=== PATIENT | male | born 1980 | race Caucasian/White ===

== ENCOUNTER 2023-06-27 20:33 | Inpatient (IN) ==
--- NOTE | 2023-06-27 21:06 | Emergency Department Note ---
Impression & Plan Cholelithiasis, Biliary colic, Hypokalemia ED Provider Note NAME: CANDI ALMONTE AGE: 43 SEX: M : 1980 ARRIVES VIA: Ambulance INFORMANT: Patient ED PROVIDER(S): Jon Donahue DO CHIEF COMPLAINT: abdominal pain HPI: Patient is a 43-year-old male who presents to the ER for epigastric abdominal pain which started around 745. This was associated with nausea but no vomiting. He notes it was severe and comes and goes in waves. He notes if he takes a deep breath his belly hurts significantly more as well as twisting, turning, and bending. No previous abdominal surgeries. No dysuria, urgency, or frequency. No other exacerbating or remitting factors. ADDITIONAL HISTORY OBTAINED: Additional history obtained from who is present at bedside who notes that the symptoms started around 7:45 PM tonight just after dinner Chronic Medical/Social Conditions Affecting Care: Per HPI PAST MEDICAL HISTORY:See Below PAST SURGICAL HISTORY:See Below FAMILY HISTORY:See Below SOCIAL HISTORY:See Below HOME MEDICATIONS:See Below ALLERGIES:See Below VITALS:See Below PHYSICAL EXAMINATION: GENERAL: Sitting up in bed, alert, well appearing, well nourished, no distress, non-toxic EYE EXAM: normal conjunctiva. PERRL and EOM's grossly intact. OROPHARYNX: no exudate, no erythema, lips, buccal mucosa, and tongue normal and mucous membranes are moist NECK: supple, no nuchal rigidity, no adenopathy, non-tender LUNGS: Clear to auscultation. Normal chest wall mechanics HEART: no murmurs, S1 normal and S2 normal ABDOMEN: abdomen soft, tender palpation in the epigastric region, normo-active bowel sounds, no masses, no rebound or guarding. UPPER EXTREMITIES: upper extremities are grossly normal. LOWER EXTREMITIES: No pitting edema. NEURO EXAM: Normal sensorium, cranial nerves II-XII grossly intact, normal speech, no gross weakness of arms, no gross weakness of legs. MEDICAL DECISION MAKING: Patient is a 43-year-old male who presents ER for epigastric abdominal pain. IV was established blood work was obtained. Labs show no significant leukocytosis or anemia. BMP with mild hypokalemia 3.3. LFTs bilirubin was unremarkable. Lipase was normal. CT abdomen pelvis shows cholelithiasis. He was given IV fluids and IV narcotics. He was significantly tender in the right upper quadrant. Do favor this consistent with biliary colic/possible cholecystitis. Discussed case with Mehrdad from general surgery. He evaluated him at bedside. He discussed with his attending and patient was admitted. Ultrasound was ordered and pending upon admission. Consults/Care Managements Discussions: Per [facility] Triage Nursing notes reviewed. Limited review of prior medical records performed Vital Signs: reviewed and remarkable for no significant abnormalities Differential diagnosis: Differential diagnoses includes but is not limited to gastritis, peptic ulcer disease, GERD, gallbladder disease, pancreatitis, small bowel obstruction, appendicitis, diverticulitis, hernia, urinary tract infection, torsion, perforation, trauma, infectious. ER treatment provided: See below Diagnostics interpreted by me include EKG and cardiac monitoring as listed below: -Cardiac Monitoring: An order was placed for continuous cardiac monitoring. The monitor shows a rate of 70 with sinus rhythm. -ECG: Sinus rhythm rate 72 Normal axis No PVCs QTc 405 -Laboratory studies:Interpreted by me as stated above in MDM and shown below. Imaging studies: Xrays: As interpreted by me:none CTs show: CT abdomen pelvis per my preliminary interpretation shows stones in the gallbladder CT abdomen pelvis per radiology as described above Procedures:none Critical Care: None Past Med/Surg History Social History Smoking Status: Unknown if ever smoked Preferred Language: Bruneian Feels Safe at Home: Yes Allergies Allergies Allergy/AdvReac Type Severity Reaction Status Date / Time No Known Allergies Allergy Verified 06/27/23 22:16 Home Meds Home Medications Medication Instructions Recorded Confirmed No Known Home Medications 06/27/23 06/27/23 Results & Data (ED) Vital Signs Vital Signs - 24 hr 06/27/23 20:30 06/27/23 20:51 06/27/23 21:00 Temperature 36.9 C Temperature Source Oral Pulse Rate 78 80 73 Pulse Rate [Apical] Pulse Rate from SpO2 Sensor 73 Pulse Rhythm Regular Pulse Strength Normal Respiratory Rate 22 20 Respiratory Effort / Characteristics Non-Labored Spontaneous Respiratory Depth Normal Respiratory Pattern Regular Blood Pressure 144/112 H 138/106 H Blood Pressure [Right Arm] Blood Pressure Mean 122 116 Blood Pressure Mean [Right Arm] Blood Pressure Position Lying Blood Pressure Position [Right Arm] Pulse Oximetry 100 95 Oxygen Delivery Method Room Air Room Air Sepsis Recent Fever Within 48 Hours No Sepsis New/Unexplained Change in Mental Status N/A Sepsis Action Taken by Nursing No Action Required 06/27/23 21:09 06/27/23 22:00 06/27/23 22:30 Temperature Temperature Source Pulse Rate 78 75 73 Pulse Rate [Apical] Pulse Rate from SpO2 Sensor 75 74 Pulse Rhythm Pulse Strength Respiratory Rate 22 17 14 Respiratory Effort / Characteristics Respiratory Depth Respiratory Pattern Blood Pressure 123/87 127/86 Blood Pressure [Right Arm] Blood Pressure Mean 99 99 Blood Pressure Mean [Right Arm] Blood Pressure Position Blood Pressure Position [Right Arm] Pulse Oximetry 98 95 94 Oxygen Delivery Method Room Air Room Air Room Air Sepsis Recent Fever Within 48 Hours Sepsis New/Unexplained Change in Mental Status Sepsis Action Taken by Nursing 06/27/23 23:24 Temperature Temperature Source Pulse Rate Pulse Rate [Apical] 62 Pulse Rate from SpO2 Sensor Pulse Rhythm Pulse Strength Respiratory Rate 18 Respiratory Effort / Characteristics Non-Labored Spontaneous Respiratory Depth Normal Respiratory Pattern Regular Blood Pressure Blood Pressure [Right Arm] 141/91 H Blood Pressure Mean Blood Pressure Mean [Right Arm] 107 Blood Pressure Position Blood Pressure Position [Right Arm] Semi-fowlers Pulse Oximetry 95 Oxygen Delivery Method Room Air Sepsis Recent Fever Within 48 Hours Sepsis New/Unexplained Change in Mental Status Sepsis Action Taken by Nursing Laboratory Data 06/27/23 Unknown 06/27/23 Unknown Lab Results 06/27/23 Range/Units Unknown WBC 6.70 (4.8-10.8) K/ul RBC 5.01 (4.70-6.10) M/uL Hgb 14.6 (14.0-18.0) g/dl Hct 43.1 (42.0-52.0) % MCV 86.0 (80.0-100.0) fL MCH 29.1 (25.0-34.0) pg MCHC 33.9 (32.0-36.0) g/dL RDW Std Deviation 37.7 (36.4-46.3) fL RDW Coeff of Elliot 11.9 (11.5-14.5) % Plt Count 203 (130-400) K/uL MPV 11.8 (9.4-12.4) fL Immature Gran % (Auto) 0.1 % Neut % (Auto) 34.4 % Lymph % (Auto) 56.0 % Scurry % (Auto) 7.2 % Eos % (Auto) 2.2 % Baso % (Auto) 0.1 % Neut # (Auto) 2.30 (1.40-6.50) K/uL Lymph # (Auto) 3.75 H (1.20-3.40) K/uL Scurry # (Auto) 0.48 (0.11-0.59) K/uL Eos # (Auto) 0.15 (0.00-0.50) K/uL Baso # (Auto) 0.01 (0.00-0.20) K/uL Immature Gran # (Auto) 0.01 (0.01-0.20) K/uL Sodium 140 (136-145) mmol/L Potassium 3.3 L (3.5-5.1) mmol/L Chloride 104 (98-107) mmol/L Carbon Dioxide 29 (21-32) mmol/L Anion Gap 7 (3-11) BUN 16 (6-23) mg/dl Creatinine 0.84 (0.6-1.4) mg/dl Est Cr Clr Drug Dosing Not Reportable Est GFR ( Amer) 125.2 ml/min Est GFR (Non-Af Amer) 108.0 ml/min BUN/Creatinine Ratio 19.0 (10-20) Glucose 90 (70-99(Fasting)) mg/dl Calcium 9.1 (8.6-10.3) mg/dl Total Bilirubin 0.6 (0.2-1.0) mg/dl AST 31 (13-39) U/L ALT 22 (7-52) U/L Alkaline Phosphatase 75 (34-104) U/L Total Protein 7.8 (6.0-8.3) gm/dl Albumin 4.6 (3.4-5.0) gm/dl Globulin 3.2 (2.5-4.0) gm/dl Albumin/Globulin Ratio 1.4 (0.9-2) Lipase 25 (11-82) U/L Administered Medications Discontinued Medications Ioversol (Optiray 320 100ml) 92 ml IV ONCE ONE Stop: 06/27/23 21:35 Last Admin: 06/27/23 21:34 Dose: 92 ml Documented By: NEHA Morphine Sulfate (Morphine Sulfate 10 Mg/Ml Carp/Vial) 6 mg IV NOW STA Stop: 06/27/23 21:04 Last Admin: 06/27/23 21:14 Dose: 6 mg Documented By: CHERYL Ondansetron HCl (Ondansetron Inj 2 Mg/Ml 2 Ml Vial) 4 mg IV NOW STA Stop: 06/27/23 21:04 Last Admin: 06/27/23 21:14 Dose: 4 mg Documented By: CHERYL Imaging Data Radiologist's Impression: Abdomen/Pelvis CT 06/27/23 20:54 Exam(s): CT ABDOMEN + PELVIS With Contrast IV Amt: 92 ml optiray 320 EXAM: CT Abdomen and Pelvis With Intravenous Contrast CLINICAL HISTORY: Reason for exam: epigastric abd. TECHNIQUE: Axial computed tomography images of the abdomen and pelvis with intravenous contrast. CTDI is 20.71 mGy and DLP is 1101.08 mGy-cm. Automated exposure control was utilized for the study. A dose lowering technique was utilized adhering to the principles of ALARA. CONTRAST: Patient received 92 ml optiray 320 of IV contrast COMPARISON: No relevant prior studies available. FINDINGS: Lung bases: Unremarkable. No mass. No consolidation. ABDOMEN: Liver: Unremarkable. No mass. Gallbladder and bile ducts: Cholelithiasis. No ductal dilation. Pancreas: Unremarkable. No mass. No ductal dilation. Spleen: Unremarkable. No splenomegaly. Adrenals: Unremarkable. No mass. Kidneys and ureters: Unremarkable. No hydronephrosis or delayed nephrogram. Stomach and bowel: Diverticulosis, without acute diverticulitis. No small bowel obstruction. No free intraperitoneal air. PELVIS: Appendix: Normal appendix. Bladder: Decompressed urinary bladder. Reproductive: Vasectomy clips. ABDOMEN and PELVIS: Intraperitoneal space: Unremarkable. No free air. No significant fluid collection. Bones/joints: No acute fracture. No dislocation. Soft tissues: Unremarkable. Vasculature: Unremarkable. No abdominal aortic aneurysm. Lymph nodes: Unremarkable. No enlarged lymph nodes. IMPRESSION: 1. No hydronephrosis or delayed nephrogram. 2. Cholelithiasis. 3. Diverticulosis, without acute diverticulitis. No small bowel obstruction. No free intraperitoneal air. Electronically signed by: Ward Knott MD 06/27/23 22:23 PM Discharge Plan Visit Data Chief Complaint: Abdominal Pain Stated Complaint: UPPER ABD PAIN, RESTLESS, DIAPHORETIC ED Provider: Jon Donahue Discharge Problem: Cholelithiasis, Biliary colic, Hypokalemia Forms Stand Alone Forms: [facility] Prescriptions Prescriptions: No Action No Known Home Medications Referrals Referrals: PCP,NO [Physician] - Discharge Problem: Cholelithiasis Qualifiers: Cholelithiasis location: gallbladder Cholecystitis presence: with cholecystitis Cholecystitis acuity: unspecified acuity Biliary obstruction: without biliary obstruction Qualified Code(s): K80.10 - Calculus of gallbladder with chronic cholecystitis without obstruction
[2023-06-27] MEDS: ONDANSETRON INJ 2 MG/ML 2 ML VIAL IV STA (21:14)
[2023-06-27] MEDS: MoRPHine SULFATE 10 MG/ML CARP/VIAL IV STA (21:14)
[2023-06-27] MEDS: OPTIRAY 320 100ml IV ONE (21:34)
[2023-06-27 22:08] LABS: Alanine Aminotransferase 22 U/L (7-52); Albumin Globulin Ratio 1.4 (0.9-2); Albumin Level 4.6 gm/dl (3.4-5.0); Alkaline Phosphatase 75 U/L (34-104); Anion Gap 7 (3-11); Aspartate Aminotransferase 31 U/L (13-39); Bilirubin,Total 0.6 mg/dl (0.2-1.0); Blood Urea Nitrogen 16 mg/dl (6-23); Calcium 9.1 mg/dl (8.6-10.3); Carbon Dioxide 29 mmol/L (21-32); Chloride 104 mmol/L (98-107); Est GFR (African American) 125.2 ml/min; Globulin 3.2 gm/dl (2.5-4.0); Glucose 90 mg/dl (70-99(Fasting)); Lipase 25 U/L (11-82); Potassium 3.3 mmol/L (3.5-5.1); Sodium 140 mmol/L (136-145); Total Protein 7.8 gm/dl (6.0-8.3)
[2023-06-27 22:17] LABS: Hematocrit (blood only) 43.1 % (42.0-52.0); Hemoglobin 14.6 g/dl (14.0-18.0); Mean Corpuscular Hemoglobin 29.1 pg (25.0-34.0); Mean Corpuscular Hgb Conc 33.9 g/dL (32.0-36.0); Mean Platelet Volume 11.8 fL (9.4-12.4); Platelet Count 203 K/uL (130-400); RDW Coefficient of Variation 11.9 % (11.5-14.5); RDW Standard Deviation 37.7 fL (36.4-46.3); Red Blood Count 5.01 M/uL (4.70-6.10)
--- NOTE | 2023-06-27 22:24 | CT Scan Report ---
Exam(s): CT ABDOMEN + PELVIS With Contrast IV Amt: 92 ml optiray 320 EXAM: CT Abdomen and Pelvis With Intravenous Contrast CLINICAL HISTORY: Reason for exam: epigastric abd. TECHNIQUE: Axial computed tomography images of the abdomen and pelvis with intravenous contrast. CTDI is 20.71 mGy and DLP is 1101.08 mGy-cm. Automated exposure control was utilized for the study. A dose lowering technique was utilized adhering to the principles of ALARA. CONTRAST: Patient received 92 ml optiray 320 of IV contrast COMPARISON: No relevant prior studies available. FINDINGS: Lung bases: Unremarkable. No mass. No consolidation. ABDOMEN: Liver: Unremarkable. No mass. Gallbladder and bile ducts: Cholelithiasis. No ductal dilation. Pancreas: Unremarkable. No mass. No ductal dilation. Spleen: Unremarkable. No splenomegaly. Adrenals: Unremarkable. No mass. Kidneys and ureters: Unremarkable. No hydronephrosis or delayed nephrogram. Stomach and bowel: Diverticulosis, without acute diverticulitis. No small bowel obstruction. No free intraperitoneal air. PELVIS: Appendix: Normal appendix. Bladder: Decompressed urinary bladder. Reproductive: Vasectomy clips. ABDOMEN and PELVIS: Intraperitoneal space: Unremarkable. No free air. No significant fluid collection. Bones/joints: No acute fracture. No dislocation. Soft tissues: Unremarkable. Vasculature: Unremarkable. No abdominal aortic aneurysm. Lymph nodes: Unremarkable. No enlarged lymph nodes. IMPRESSION: 1. No hydronephrosis or delayed nephrogram. 2. Cholelithiasis. 3. Diverticulosis, without acute diverticulitis. No small bowel obstruction. No free intraperitoneal air. Electronically signed by: Ward Knott MD 06/27/23 22:23 PM
[2023-06-27 22:54] LABS: Basophils # (auto) 0.01 K/uL (0.00-0.20); Basophils % (auto) 0.1 %; Eosinophils # (auto) 0.15 K/uL (0.00-0.50); Eosinophils % (auto) 2.2 %; Immature Granulocytes # (auto) 0.01 K/uL (0.01-0.20); Immature Granulocytes % (auto) 0.1 %; Lymphocytes # (auto) 3.75 K/uL (1.20-3.40); Monocytes # (auto) 0.48 K/uL (0.11-0.59); Monocytes % (auto) 7.2 %; Neutrophils % (auto) 34.4 %
[2023-06-27] MEDS ORDERED: ACETAMINOPHEN 1,000 MG/100 ML VIAL IV PRN (23:03)
[2023-06-27] MEDS ORDERED: MoRPHine SULFATE 4 MG/ML 1 ML CARP\\VIAL IV PRN (23:03)
[2023-06-27] MEDS ORDERED: ONDANSETRON INJ 2 MG/ML 2 ML VIAL IV PRN (23:03)
--- NOTE | 2023-06-27 23:03 | History & Physical Report ---
Date of Service June 27, 2023 Assessment & Plan (1) Cholelithiasis: Plan: Due to the patient's clinical presentation and findings on imaging he will be admitted to the surgical service proceeding as follows: Analgesics be provided Antiemetics we provided Will hydrate the patient with IV fluids, supplementing his potassium I feel the patient can have clear liquids this evening up until midnight at which time we will make him n.p.o. Will repeat laboratories in the morning We will check a formal gallbladder ultrasound for further assessment of his hepatobiliary system We will tenably plan on having the patient undergo cholecystectomy with Dr. Charles on 06/28/2023. As the patient does not have evidence of cholecystitis at the present time we will not place him on antibiotics unless otherwise dictated by the pending ultrasound. We will however, plan on using perioperative antibiotics in the usual fashion. Additional recommendations with forthcoming based on his clinical course unfolds and his postoperative recovery following his planned surgical procedure We use SCDs for DVT prevention, no chemical means due to anticipated surgery He will be a level 1 full code History of Present Illness Chief Complaint: Cholelithiasis with biliary colic Primary Care Provider: NO PCP This is a 43-year-old male who presented to the emergency department secondary to abdominal pain. Patient says he was in his usual state of health feeling fine up until 7:30 PM today when about 1/2-hour after eating his evening meal he developed some upper abdominal pain which was in his epigastric area and across his upper abdomen in a bandlike fashion. He said he broke out in a sweat and had some nausea without vomiting but did not have any fevers to the best of his knowledge. He notes over the past several weeks to months he has been experiencing some minor upper abdominal pain but he never sought medical attention and it was never as severe as what he experienced this evening. He notes he has never had abdominal surgery before. Other than medicines administered in the emergency department he did not report any modifying factors to his pain. Since arrival to the emergency department he had labs and imaging which independent reviewed. A CBC revealed white blood cell count, hemoglobin, hematocrit, and platelet count are all normal. Chemistry profile showed sodium was normal. His potassium is slightly low at 3.3. BUN and creatinine were within normal range. There is no elevation of his LFTs or lipase. A CT scan of the abdomen pelvis showed gallstones with no biliary ductal dilatation. An EKG was performed which showed normal sinus rhythm. There were no changes indicativ e of ischemia on this study. At the time of my interview the patient was resting comfortably in bed he was no distress. Concerning past medical history he denies any medical problems. Concerning past surgical history he has had an adenoidectomy Concerning social history he does not smoke or drink alcohol. Concerning family history he does not report any family history of gallbladder disease Allergies Allergy/AdvReac Type Severity Reaction Status Date / Time No Known Allergies Allergy Verified 06/27/23 22:16 Home Medications Medication Instructions Recorded Confirmed Type No Known Home Medications 06/27/23 06/27/23 History Past Med/Surg History Social History Smoking Status: Never smoker Second Hand Exposure: No; Do You Dip or Chew Tobacco: No; Tobacco Cessation Education Requested by Patient: No Hx Alcohol Use: No Hx Substance Use: No Preferred Language: Tamazight Communication Ability: Effective Polisher Numeral Required: No Beliefs That Will Affect Care: None Current Living Situation: Family Other Information That Helps Us Care for You: No Feels Safe at Home: Yes Safety Concerns: Feels Safe At This Time Assistive Devices: None Review of Systems Constitutional: no fever and no chills Ear, Nose, Mouth, Throat: no hearing loss Respiratory: no cough and no dyspnea Cardiovascular: no chest pain Gastrointestinal: as per Subjective / HPI Genitourinary: no dysuria Musculoskeletal: no back pain Integumentary: no rash Neurologic: no localized weakness Physical Exam Constitutional: WD/WN, vitals as above Eyes: + anicteric sclerae ENMT: Ears: no hearing impairment and no external ear abnormality Sublingual jaundice is absent Neck: trachea midline Respiratory: normal respiratory effort; no respiratory distress and no labored breathing Cardiovascular: Rate/Rhythm: regular rate and regular rhythm Vessels: dorsalis pedis pulses present and radial pulses present Gastrointestinal (Abdomen): Patient's abdomen has minimal distention. The patient did have some tenderness with palpation in the epigastric area and the right upper quadrant. There is no rebound tenderness or guarding. Musculoskeletal: No calf tenderness Skin: no jaundice Neurologic: moves all extremities Psychiatric: A+Ox3, euthymic affect Results & Data Results & Data Vital Signs (Past 12 Hours) Vital Signs Temp Pulse Resp BP Pulse Ox O2 Del Method 06/27/23 21:09 78 22 98 Room Air 06/27/23 20:51 80 06/27/23 20:30 36.9 C 78 22 144/112 H 100 Room Air Supervising Physician Co-Signing Physician Notes I have discussed this case with the surgical PA and I agree with the plan. PG Care Time/CCT Total # of Minutes Spent Total Time Spent with Patient: Total time spent is greater than 50% in coordination of care (as documented) at patient's floor/unit and/or counseling patient: Coding Level of Care Code 46072 INT INP/OBS CARE MIN Diagnoses Cholelithiasis K80.20
[2023-06-27] MEDS: POTASSIUM CHLORIDE 10 MEQ in SODIUM CHLORIDE 0.9% 1,000 ML IV SCH (23:41)
--- NOTE | 2023-06-28 00:15 | Ultrasound Report ---
Exam(s): US GALLBLADDER EXAM: US Abdomen Limited, Gallbladder CLINICAL HISTORY: Reason for exam: ruq abd pain. TECHNIQUE: Real-time ultrasound of the right upper quadrant with image documentation. COMPARISON: None. FINDINGS: Limitations: Exam is limited due to body habitus and gas artifact in the bowel. Liver: The liver measures 16.6 cm. The main portal vein reveals hepatopedal flow. There is diffuse fatty infiltration throughout the liver. Gallbladder: The Lopez sign is indeterminate due to administration of 5 medication. Multiple gallstones noted within the gallbladder. The gallbladder wall measures 2.5 mm. Common bile duct: The common bile duct measures 5.6 mm. No stones. No dilation. Pancreas: The pancreas is obscured. Right kidney: The right kidney is unremarkable with no hydronephrosis. Free fluid: No free fluid. IMPRESSION: 1. Diffuse fatty liver. Multiple gallstones with no distinct signs of acute cholecystitis. 2. Borderline enlargement of the common bile duct, remainder of the right upper quadrant ultrasound unremarkable. Electronically signed by: Yamilet Cherry MD 06/28/23 00:14 AM
[2023-06-28] MEDS ORDERED: cefOXitin SOD 2,000 MG VIAL IV SCH (06:00)
[2023-06-28] MEDS: cefOXitin 2,000 MG in DEXTROSE 5 % MINI-B 50 ML IV SCH (06:07)
[2023-06-28 06:34] LABS: Basophils # (auto) 0.01 K/uL (0.00-0.20); Basophils % (auto) 0.2 %; Eosinophils # (auto) 0.02 K/uL (0.00-0.50); Eosinophils % (auto) 0.3 %; Hematocrit (blood only) 40.9 % (42.0-52.0); Hemoglobin 13.2 g/dl (14.0-18.0); Immature Granulocytes # (auto) 0.01 K/uL (0.01-0.20); Immature Granulocytes % (auto) 0.2 %; Lymphocytes # (auto) 1.85 K/uL (1.20-3.40); Mean Corpuscular Hemoglobin 28.4 pg (25.0-34.0); Mean Corpuscular Hgb Conc 32.3 g/dL (32.0-36.0); Mean Corpuscular Volume 88.1 fL (80.0-100.0); Mean Platelet Volume 11.6 fL (9.4-12.4); Monocytes # (auto) 0.45 K/uL (0.11-0.59); Monocytes % (auto) 7.1 %; Neutrophils # (auto) 4.03 K/uL (1.40-6.50); Neutrophils % (auto) 63.2 %; Platelet Count 173 K/uL (130-400); RDW Standard Deviation 38.5 fL (36.4-46.3); Red Blood Count 4.64 M/uL (4.70-6.10); White Blood Count 6.37 K/ul (4.8-10.8)
[2023-06-28 06:50] LABS: Albumin Globulin Ratio 1.5 (0.9-2); Albumin Level 3.8 gm/dl (3.4-5.0); BUN Creatinine Ratio 20.2 (10-20); Bilirubin,Total 0.9 mg/dl (0.2-1.0); Calcium 8.8 mg/dl (8.6-10.3); Est GFR (African American) 125.2 ml/min; Globulin 2.5 gm/dl (2.5-4.0); Potassium 4.2 mmol/L (3.5-5.1); Total Protein 6.3 gm/dl (6.0-8.3)
[2023-06-28 06:58] LABS: INR 1.1 (0.9-1.1); Partial Thromboplastin Ratio 0.9; Partial Thromboplastin Time 26 Seconds (21-31); Prothrombin Time 11.6 Seconds (9.0-12.0)
[2023-06-28] MEDS ORDERED: fentaNYL citrate PF 100 MCG/2 ML VIAL ONE ×2 (07:28→09:04)
[2023-06-28] MEDS ORDERED: MIDAZOLAM HCL 1 MG/ML 2ML VIAL ONE (07:28)
[2023-06-28] MEDS ORDERED: ONDANSETRON INJ 2 MG/ML 2 ML VIAL ONE (07:33)
[2023-06-28] MEDS ORDERED: LIDOCAINE 2% 2 ML VIAL/AMP(20MG/ML) INFIL ONE (07:33)
[2023-06-28] MEDS ORDERED: PROPOFOL IV EMULSION 10 MG/ML 20 ML VIAL IV ONE (07:33)
[2023-06-28] MEDS ORDERED: DEXAMETHASONE SOD INJ 4 MG/ML VIAL ONE (07:33)
--- NOTE | 2023-06-28 07:38 | Anesthesiology Consultation ---
Date of Service June 28, 2023 Assessment & Plan Chart Review Chart Review: Acceptable Risk for Surgery and Patient NOT seen in Pre Admission Testing Consults Requested none ASA ASA2 Proposed Anesthesia Anesthesia Type: General History Surgery Operation Date: 06/28/23 08:20 Proposed Procedures p Robotic Laparoscopic Cholecystectomy - Sin Andrew DO Height/Weight Height: 5 ft 11 in Weight: 86.5 kg Allergies Allergy/AdvReac Type Severity Reaction Status Date / Time No Known Allergies Allergy Verified 06/27/23 22:16 Medications Home Medications Medication Instructions Recorded Confirmed Last Taken No Known Home Medications 06/27/23 06/27/23 Unknown Active Medications Generic Name Dose Route Start Last Admin Trade Name Freq PRN Reason Stop Dose Admin Potassium Chloride 10 meq/ 1,005 mls @ 100 mls/hr 06/27/23 23:15 06/27/23 23:41 Sodium Chloride IV 07/27/23 23:14 100 mls/hr .Q10H3M BEATA Administration Cefoxitin Sodium 2,000 mg/ 50 mls @ 120 mls/hr 06/28/23 06:00 06/28/23 06:38 Dextrose IV 06/29/23 05:59 Infused PREOP BEATA Infusion Exercise / Class Metabolic Activity II 4-5 Yardwork/Stairs/Walk up hill Past Anesthesia History No Hx of Anesthesia Complications and No Family Hx of Anesthesia Complications History of PONV No Hx of PONV and No Hx of Motion Sickness Social History Smoking Status: Never smoker Do You Dip or Chew Tobacco: No Hx Alcohol Use: No Hx Substance Use: No Physical Exam Vital Signs Last Vital Signs Temp 36.8 C 06/27/23 21:42 Pulse 81 06/28/23 00:52 Resp 18 06/28/23 00:30 BP 128/90 06/28/23 00:30 Pulse Ox 93 06/28/23 00:30 O2 Del Method Room Air 06/28/23 01:42 Testing Laboratory Results 06/28/23 06:08 06/28/23 06:08 PT 11.6 Seconds (9.0-12.0) 06/28/23 06:08 INR 1.1 (0.9-1.1) 06/28/23 06:08 APTT 26 Seconds (21-31) 06/28/23 06:08 Electrocardiogram Date: 06/27/23 Findings: + NSR @ (@ 72)
[2023-06-28] MEDS ORDERED: NALOXONE HCL 0.4 MG/1 ML VIAL/CARP IV PRN (07:49)
[2023-06-28] MEDS ORDERED: fentaNYL citrate PF 100 MCG/2 ML VIAL IV PRN (07:49)
[2023-06-28] MEDS ORDERED: HYDROmorphone INJ 1 MG/ML SYRINGE IV PRN (07:49)
[2023-06-28] MEDS ORDERED: ONDANSETRON INJ 2 MG/ML 2 ML VIAL IV PRN (07:49)
[2023-06-28] MEDS ORDERED: FLUMAZENIL 0.1 MG/1 ML 10 ML VIAL IV PRN (07:49)
[2023-06-28] MEDS ORDERED: PROMETHAZINE HCL 6.25 MG in SODIUM CHLORIDE 0.9% 50 ML IV PRN (07:49)
[2023-06-28] MEDS ORDERED: ePHEDrine sulfate 50 MG/ML AMP IV PRN (07:49)
[2023-06-28] MEDS ORDERED: ATROPINE SULFATE 0.1 MG/ML 10ML SYR IV PRN (07:49)
[2023-06-28] MEDS ORDERED: LABETALOL HCL IV 5 MG/ML 20ML IV PRN (07:49)
[2023-06-28] MEDS: INDOCYANINE GREEN 25 MG VIAL INJ ONE (08:04)
[2023-06-28] MEDS ORDERED: DexMEDEtomidine HCL IV 100 MCG/ML VIAL IV ONE (08:05)
[2023-06-28 08:06] LABS: Appearance Urine Turbid (Clear); Bilirubin Urine Negative (Negative); Blood Urine Negative (Negative); Cast Urine Automated 0-2 /lpf (0-2); Color Urine Dark Yellow; Epithelial Cell Urine Auto 0-2 /hpf (0-2); Glucose Urine UA Negative (Negative); Ketones Urine Negative (Negative); Leukocyte Esterase Urine Negative (Negative); Nitrite Urine Negative (Negative); Protein Urine 1+ (Negative); Specific Gravity Urine > 1.045 (1.000-1.030); Urobilinogen Urine Negative (Negative); WBC Urine Automated 0-5 /hpf (0-5); pH Urine 8.5 (4.5-7.5)
--- NOTE | 2023-06-28 08:09 | History & Physical Bridge Note ---
Date of Service June 28, 2023 History & Physical Bridge Note I have examined the patient, reviewed the History & Physical and in the interval since the performance of the History & Physical I have noted the following changes of clinical significance: no changes noted. Ancelmo presents to [facility] for robotic cholecystectomy, possible laparoscopic, possible open and all other indicated procedures.
[2023-06-28 08:41] LABS: Bacteria Urine Automated 1+ (None Seen)
[2023-06-28 08:42] LABS: Amorphous Sediment Urine Present (None Prsent)
[2023-06-28] MEDS: ceFAZolin 2000MG 2,000 MG/15 ML SYR IV SCH (08:55)
[2023-06-28] MEDS ORDERED: ceFAZolin 330 MG/ML 1 GM VIAL ONE (08:55)
[2023-06-28] MEDS ORDERED: KETOROLAC 30 MG/ML VIAL ONE (09:04)
[2023-06-28] MEDS ORDERED: PHENYLEPHRINE 100MCG/ML 10ML SYR IV ONE (09:26)
[2023-06-28] MEDS: BUPIVACAINE 0.5 % 5 MG/1 ML MPF 30ML VIAL ONE (10:00)
[2023-06-28] MEDS ORDERED: SUGAMMADEX SODIUM 200 MG/2 ML VIAL IV ONE (10:13)
[2023-06-28] MEDS ORDERED: GLYCOPYRROLATE 0.2 MG/ML VIAL ONE (10:51)
--- NOTE | 2023-06-28 11:22 | Operative Report ---
PG Post Operative Report Pre & Post Diagnosis Operation Date: 06/28/23 08:20 Pre-Op Diagnosis: Gallstones Post-Op Diagnosis: Gallstones I identified the patient and participated in the time-out.: Yes Procedure Operation Date: 06/28/23 08:20 Actual Procedures p Robotic Laparoscopic Cholecystectomy(Not Applicable) - Sin Winters DO Surgeon Sin Andrew DO Morgue Technician No surgical forceps fabricator Estimated Blood Loss 5 Findings See Below Gallbladder containing multiple large stones Specimens Gallbladder Anesthesia Type General Complications None Indications Symptomatic biliary colic with mild transaminitis Description of Procedure The patient was brought back to the operating room and placed on the operating room table in supine position. He was connected to cardiac and oxygen monitoring, supplemental O2 was also provided. SCDs were applied to bilateral lower extremities and the patient was administered general anesthesia. A secure airway was established. The abdomen was prepped and draped in typical sterile fashion and a timeout was conducted. Local anesthetic was used to anesthetize the skin and subcutaneous tissue before making all incisions. An incision with an 11 blade was made just superior and lateral to the umbilicus. The fascia was elevated and intra-abdominal access was gained using a Veress needle. Pneumoperitoneum was established to a goal pressure of 15 mmHg. Once this was established, an 8 mm robotic trocar was inserted using a Visiport with direct visualization and by connection to a 5 mm laparoscope. Under direct visualization an additional 8 mm trocar was inserted at the right lateral abdomen, left lateral abdomen and left subcostal margin. There was bleeding from the left subcostal margin trocar site. This was controlled using cautery. There is no injury caused by the insertion of the Veress needle or any of the trocars. The patient was then placed in reverse Trendelenburg and left side down. The robot was then docked and targeted. A forced biceps was used in arm 1, the endoscope and arm 2, monopolar hook and arm 3 and a ProGrasp in arm for to start the case. All the ports were burped to relieve undue tension on the abdominal wall. At the console, the gallbladder was identified at the right upper quadrant distended. The gallbladder was grasped and elevated superiorly. Omental adhesion was dissected away using cautery dissection. The infundibulum was retracted superior laterally. The cystic artery was dissected and anatomically apparent wrapping around the anterior aspect of the cystic duct. The cystic duct was identified crossing posteriorly behind the cystic artery. The cystic duct was also dissected and exposed. Once both of these structures were exposed, the each were ligated using two 5 mm hemoclips proximally, 1 distally. Each structure was then transected using cutting energy with the hook. The gallbladder was dissected away from the liver bed. Small amount of bleeding was controlled along the way to maintain hemostasis. Hemostasis was thoroughly checked for the liver bed. Any areas of questionable potential oozing were treated with gentle cautery. Suction was used to clear away a small amount of blood at the liver bed. The gallbladder was placed in an Endo Catch. All instruments were removed. Removal of the Endo Catch bag containing the gallbladder from the abdomen was inhibited by the presence of very large stones. The gallbladder was opened in an attempt to crush the stones for removal. 1 stone in particular was very large and hard and cannot be crushed with the towel clamp. The incision had to be enlarged to allow for removal of the Endo Catch bag with its contents. The gallbladder was then placed in a label container sent to pathology for further analysis. The trocars were removed and pneumoperitoneum was evacuated. The abdomen was cleaned as gallbladder contents had spilled on the abdomen. The area was cleaned well prior to incision c losure. The fascia at the trocar site for which the gallbladder was removed was closed with 0 Vicryl suture. Local anesthetic was used at the level of fascia and subcutaneous tissue. The skin incisions were all closed with 4-0 Monocryl suture. The abdomen was again wiped clean and dried. Dermabond was applied to all 4 incision sites. The patient was awakened from anesthesia and the secured airway was removed. He tolerated the procedure well and was transferred to recovery in stable condition. I attest to the content of the Intraoperative Record and any orders documented therein. Any exceptions are noted below.
--- NOTE | 2023-06-28 12:02 | Anesthesiology Progress Note ---
Date of Service June 28, 2023 Anesthesia Post Procedure Vital Signs Vital Signs: Temp Pulse Pulse Pulse Resp BP BP 06/28/23 11:40 94 H 12 136/96 06/28/23 11:30 80 12 151/91 H 06/28/23 11:20 83 12 133/92 06/28/23 11:10 36.3 C L 92 H 16 133/81 06/28/23 07:35 37 C 90 18 149/91 H 06/28/23 01:42 06/28/23 00:52 81 06/28/23 00:30 90 18 128/90 06/28/23 00:00 71 12 124/89 06/27/23 23:30 74 12 120/87 06/27/23 23:24 62 18 141/91 H 06/27/23 22:30 73 14 127/86 06/27/23 22:00 75 17 123/87 06/27/23 21:42 36.8 C 70 16 128/86 06/27/23 21:09 78 22 06/27/23 21:00 73 20 138/106 H 06/27/23 20:51 80 06/27/23 20:30 36.9 C 78 22 144/112 H Pulse Ox O2 Del Method O2 Flow Rate 06/28/23 11:40 97 Room Air 06/28/23 11:30 99 Oxymask 3 06/28/23 11:20 100 Oxymask 6 06/28/23 11:10 100 Oxymask 6 06/28/23 07:35 98 Room Air 06/28/23 01:42 Room Air 06/28/23 00:52 06/28/23 00:30 93 Room Air 06/28/23 00:00 97 Room Air 06/27/23 23:30 96 Room Air 06/27/23 23:24 95 Room Air 06/27/23 22:30 94 Room Air 06/27/23 22:00 95 Room Air 06/27/23 21:42 96 Room Air 06/27/23 21:09 98 Room Air 06/27/23 21:00 95 Room Air 06/27/23 20:51 06/27/23 20:30 100 Room Air Pain Intensity Upper Abdomen: Pain Intensity: 10 Left Abdomen: Pain Intensity: 3 Transfer of Care Handoff Completed per policy Notes Mental Status: alert / awake / arousable Patient Amnestic to Procedure: Yes Nausea / Vomiting: adequately controlled Pain: adequately controlled Airway Patency, RR, SpO2: stable & adequate BP & HR: stable & adequate Hydration State: stable & adequate Anesthetic Complications: no major complications apparent
[2023-06-28] MEDS ORDERED: oxyCODONE HCL IR 5 MG TAB (IMMEDIATE RELEASE) PO PRN (12:21)
[2023-06-28] MEDS ORDERED: ACETAMINOPHEN 325 MG TAB PO PRN (12:21)
[2023-06-28] MEDS ORDERED: MoRPHine SULFATE 4 MG/ML 1 ML CARP\\VIAL IV PRN (12:21)
[2023-06-28] MEDS ORDERED: MoRPHine SULFATE 2 MG/ML CARP IV PRN (12:21)
[2023-06-28] MEDS: oxyCODONE HCL IR 5 MG TAB (IMMEDIATE RELEASE) PO PRN (12:45)
--- NOTE | 2023-06-28 15:45 | Electrocardiogram Report ---
Test Reason : Blood Pressure : / mmHG Vent. Rate : 072 BPM Atrial Rate : 072 BPM P-R Int : 148 ms QRS Dur : 088 ms QT Int : 370 ms P-R-T Axes : 035 049 054 degrees QTc Int : 405 ms Normal sinus rhythm Normal ECG When compared with ECG of 08-NOV-2013 07:41, No significant change was found Confirmed by Ish Gonzales ([id number]) on 06/28/2023 3:45:36 PM Referred By: REFERRED SELF Confirmed By:Ish Gonzales
--- NOTE | 2023-06-28 16:40 | Discharge Summary ---
Date of Service June 28, 2023 Admission HPI Per Admitting Provider This is a 43-year-old male who presented to the emergency department secondary to abdominal pain. Patient says he was in his usual state of health feeling fine up until 7:30 PM today when about 1/2-hour after eating his evening meal he developed some upper abdominal pain which was in his epigastric area and across his upper abdomen in a bandlike fashion. He said he broke out in a sweat and had some nausea without vomiting but did not have any fevers to the best of his knowledge. He notes over the past several weeks to months he has been experiencing some minor upper abdominal pain but he never sought medical attention and it was never as severe as what he experienced this evening. He notes he has never had abdominal surgery before. Other than medicines administered in the emergency department he did not report any modifying factors to his pain. Since arrival to the emergency department he had labs and imaging which independent reviewed. A CBC revealed white blood cell count, hemoglobin, hematocrit, and platelet count are all normal. Chemistry profile showed sodium was normal. His potassium is slightly low at 3.3. BUN and creatinine were within normal range. There is no elevation of his LFTs or lipase. A CT scan of the abdomen pelvis showed gallstones with no biliary ductal dilatation. An EKG was performed which showed normal sinus rhythm. There were no changes indicative of ischemia on this study. Principal Diagnosis biliary colic Discharge Exam Constitutional not in distress and not diaphoretic afebrile, NAD Respiratory normal respiratory effort; no respiratory distress, no labored breathing and does not use accessory muscles Gastrointestinal (Abdomen) Incisions with Dermabond Discharge Data Allergies Allergy/AdvReac Type Severity Reaction Status Date / Time No Known Allergies Allergy Verified 06/27/23 22:16 Consultations 06/27/23 22:54 ED Decision to Admit Stat Procedures Performed Operation Date: 06/28/23 08:20 Actual Procedures p Robotic Laparoscopic Cholecystectomy(Not Applicable) - Sin Winters DO Ordered Studies 06/27/23 20:54 CT abd pelvis IV con only Stat 06/27/23 22:30 US gallbladder Stat Hospital Course (1) Biliary colic: (2) Transaminitis: mild Plan The patient was taken to the operating room where he underwent a robotic cholecystectomy. The details of that procedure may be found in a separate operative report. There were no complications during the procedure and he tolerated the procedure well. Post operatively he was monitored on the floor. He recovered from anesthesia well, began to tolerate oral intake without nausea, pain well controlled, ambulating he remained HD stable and afebrile. He was discharged home on the day of the procedure. No oral antibiotics required. Follow up with me in the office in 2 weeks. D/c instructions with a work release for July 04 were included in his discharge paperwork. Total Time Total Time Spent Total Time Spent (In Minutes): 25 Discharge Plan Discharge Items Patient Disposition: Home - Self-Care Reason For Visit: GALLSTONES Discharge Diagnosis: Robotic laparoscopic cholecystectomy Activity: As commented below Lifting: No more than 10 pounds Bathing Comment: you can shower tomorrow . No pool or bath for 2 weeks Exercise/Sports: Wait until after follow-up appointment Driving/Machine Use: no driving if asher narcotic pain medication Non-emergency contact: Surgeon Call non-emergency contact if: you have any medication questions, your symptoms worsen, your pain is not controlled, your pain is unusual for you, your temperature is above 101.5, your wound has increased redness, your wound has increased drainage and your wound pain has increased Follow-up/Referrals: Sin Andrew DO [Physician] - 07/11/23 11:30 am ( follow up in 2 weeks ) George Simpson DO [Primary Care Provider] - Diet: Regular Addtl Attending Provider Instructions: You have surgical glue called dermabond on your surgical site incisions. You may shower with this on. This will tend to come off within a couple of weeks. Do not pick at it. You may purchase Tylenolover the counter, Take per manufacturers instructions, Do not take more than 3 grams of Tylenol in 24 hours. Pending Studies at Discharge: Yes Studies:: surgical pathology Stand-Alone Forms: My [facility] [employer], Work/School Release, Smoking Cessation Medications and DC Order Prescriptions: New oxycodone 5 mg tablet 5 - 10 mg PO .[id number] MDD no more than 6 tabs in 24hours PRN (Reason: pain) Qty: 15 0RF Discharge Orders: Discharge Order (Routine); Ordered 06/28/23 Ordered By: Heather Goldstein Admission Data Admit Date/Time: 06/27/23 23:07 Attending Provider: Sin Andrew Admit Provider: Sin Andrew Primary Care Provider: George Simpson Other Providers: Sin Andrew Other Interventions: Discharge Summary Assessment (RN) Last Done: 06/28/23 16:10 Coding Level of Care Code 73217 IN/OBS DISCH 30 MIN/LESS Diagnoses Biliary colic K80.50 Transaminitis R74.01
--- OUTSIDE RECORDS SUMMARY | 2023-06-28 20:05 | External Medical Summary ---
Author Name Unknown Address Unknown Organization [id number]:[facility]ATORY [facility] - [address] [facility] [address] Laboratory Report Ordering Provider Test Date Status SHERRI CLIFTON 2023 14:00:56 Final Observation Date Value Abnormality Reference (Units ) Status SARS Coronavirus 2 2023 14:00:56 Negative N egative Final No SARS-CoV2 Coronavirus RNA detected by PCR (amplified probe).
This automated test was developed and its performance characteristics determined by [facility]. It has not been cleared or approved by the U.S. Food and Drug Administration (FDA). FDA does not require this test to go thru premarket FDA review. This test is used for clinical purposes. It should not be regarded as investigational or for research. This laboratory is certified under the Clinical Laboratory Improvement Amendments (CLIA) as qualified to perform high complexity clinical laboratory testing.

This test is a nucleic acid amplification test (NAAT), a reverse transcriptase polymerase chain reaction (RT-PCR) test, or a Centers for Disease Control-acceptable equivalent. The test is performed in a high complexity Clinical Laboratory Improvement Amendments-(CLIA) certified laboratory. The test is acceptable for SARS-CoV-2 diagnosis, surveillance, and travel within the [place] and to most countries. Please check with local testing authorities about requirements before travel.

The validation of bronchial specimens, tracheal aspirates, and sputum for this assay was developed and performance characteristics determined by [facility]. The validation of alternate specimen types has not been cleared or approved by the U.S. Food and Drug Administration (FDA). It has been determined that such clearance or approval is not necessary. Influenza virus A RNA [Prese nce] in Specimen by [facility] with probe detection 2023 14:00:56 Negative Negative Final No Influenza A RNA detected by PCR (amplified probe) Influenza virus B RNA [Prese nce] in Specimen by [facility] with probe detection 2023 14:00:56 Negative Negative Final No Influenza B RNA detected by PCR (amplified probe) Respiratory syncytial virus RNA [Identifier] in Specimen by [facility] with probe detection 2023 14:00:56 Negative Negative Final No Respiratory Syncytial Vir us RNA detected by PCR (amplified probe) Performing Location LABORATORY [place] [address] [facility] [address]
--- OUTSIDE RECORDS SUMMARY | 2023-06-28 20:05 | External Medical Summary | Summary of Care ---
Author Name Unknown Organization [facility] Address [address] [place] [address] Phone [phone] Care Team Providers Care Class A Lineman Name Role Phone Unavailable Primary Care Provider Unavailabl e Reason for Referral * Evaluate & Treat - Unlimited Visits (Within 10 days (routine)) - Pending Review Specialty Diagnoses / Procedures Referred By Kam davis Referred To Contact Family Medicine Diagnoses Gastroenteritis Rocky Winters PA-C [address] [phone] Referral ID Status Reason Start Date Expiration Date Visits Requested Visits Authorized [id number] Pending Review Specialty Services Required 01/04/[phone] Question Answer Referral Priority Within 10 days (routine) Where should this appointment be scheduled? Joe Encounter Details Date Type Department Care Team (Late st Contact Info) Description 01/04/2023 [place] [facility] [address] [place] [address] Rocky Winters PA-C [address] [phone] Allergies No known active allergiesdocumented as of this encounter (statuses as of 01/04/2023) Medications No known medicationsdocumented as of this encounter (statuses as of 01/04/2023) Active Problems No known active problems documented as of this encounter (statuses as of 01/04/2023) Social History Tobacco Use Types Packs/Day Years Used Date Smoking Tobacco: Never Smokeless Tobacco: Never Alcohol Use Standard Drinks/Week Comments No 0 (1 standard drink = 0.6 oz pur e alcohol) Sex and Gender Information Value Date Recorded Sex Assigned at Not on file Gender Identity Not on file Sexual Orientation Not on file Job Start Date Occupation Industry Not on file Not on file Not on file documented as of this encounter Miscellaneous Notes * Telephone Encounter - Rocky Winters PA-C - 01/04/2023 11:27 AM EDT Work note printed - patient will pick it up later today Fam prac referral placed. documented in this encounter Plan of Treatment Scheduled Referrals Name Type Priority Associated Diagnoses Orde r Schedule FAMILY PRACTICE REFERRAL OP Referral Within 10 days (routine) Gastroenteritis Ordered: 01/04/2023 Health Maintenance Due Date Last Done Comments Diabetes Screening 1981 Hepatitis B (1 of 3 - 3-dose series) 1981 Lipid Panel 1981 COVID-19 Vaccine (#1) 1981 Depression Screening 1993 HIV Screening 01/03/1996 Hepatitis C Screening 1999 DTaP,Tdap,and Td Vaccines (1 - Tdap) 01/03/2000 Influenza Vaccine (FLU shot) (#1) 2022 GARDASIL-HPV IMMUNIZATION SERIES Aged Out No longer eligible based on patient's age to complete this topic MENINGOCOCCAL (MENACTRA/MENVEO) Aged Out No longer eligible based on patient's age to complete this topic Pneumococcal Vaccine: Pediat rics (0 to 5 Years) and At-Risk Patients (6 to 64 Years) Aged Out No longer eligible b ased on patient's age to complete this topic documented as of this encounter Medical Devices Not on filedocumented as of this encounter Visit Diagnoses Diagnosis Gastroenteritis- Primary Other and unspecified noninfectious gastroenteritis and colitis documented in this encounter
--- OUTSIDE RECORDS SUMMARY | 2023-06-28 20:05 | External Medical Summary | Summary of Care ---
Author Name Unknown Organization [facility] Address [address] [place] [address] Phone [phone] Care Team Providers Care Noteman Name Role Phone Unavailable Primary Care Provider Unavailabl e Reason for Visit * Reason Comments Other Encounter Details Date Type Department Care Team (Latest Contact Info) Description 2023 2:15 PM EDT Convenient Care [facility] [address] [place] [address] Rocky Winters PA-C [address] [place] [address] LLQ abdominal pain*; Flu-like symptoms Allergies No known active allergiesdocumented as of this encounter (statuses as of 2023) Medications No known medicationsdocumented as of this encounter (statuses as of 2023) Active Problems No known active problems documented as of this encounter (statuses as of 2023) Social History Tobacco Use Types Packs/Day Years Used Date Smoking Tobacco: Never Smokeless Tobacco: Never Tobacco Cessation:Counseling Given: Not Answered Alcohol Use Standard Drinks/Week Comments No 0 (1 standard drink = 0.6 oz pur e alcohol) Sex and Gender Information Value Date Recorded Sex Assigned at Not on file Gender Identity Not on file Sexual Orientation Not on file Job Start Date Occupation Industry Not on file Not on file Not on file documented as of this encounter Last Filed Vital Signs Vital Sign Reading Time Taken Comments Blood Pressure 120/84 2023 1:19 PM EDT Pulse 90 2023 1:19 PM EDT Temperature 37 C (98.6 F) 2023 1:19 PM EDT Respiratory Rate 16 2023 1:19 PM EDT Oxygen Saturation 98% 2023 1:19 PM EDT Inhaled Oxygen Concentration - - Weight 86.1 kg (189 lb 12.8 oz) 2023 1:19 PM EDT Height 180.3 cm (5' 11") 2023 1:19 PM EDT Body Mass Index 26.47 2023 1:19 PM EDT documented in this encounter Patient Instructions * Patient Instructions* Rocky Winters PA-C - 2023 1:55 PM EDT Increase clear, non-sugary fluid intake. Get plenty of rest You may also use ibuprofen or acetaminophen OTC for relief of pain or fevers. For sinus symptoms, and post-nasal drainage, you may start a daily nasal spray such as Flonase, Nasacort, OR Nasonex. They work best if used consistently. In addition to one of these medicated nasal sprays use saline nasal spray to avoid dryness and thinout mucous Increase your intake of clear, non-sugary fluids while you continue to have symptoms. Consider adding electrolyte drinks such as Pedialyte, coconut water, or sports drinks. Give yourself some bowel rest, and do a bland diet over the next several days, gradually adding foods back in as tolerated. Yogurt and probiotic supplements (especially lactobacillus), may help as well. One brand of probiotics that is often used for diarrhea is called culturelle, but any brand will work. Avoid high-fat or fried foods while you have symptoms, as these may further upset your GI tract. Anti-diarrhea medications: - in general, we recommend to avoid these and let the body rid itself of an toxins. - If you need to use these, however, imodium (or similar) can be used as long as you do not have a fever and stools are not bloody. - PeptoBismol is another medication that can provide relief from diarrhea, but also helps with upset stomach as well. (Note: PeptoBismol may turn your stools very dark in color). Follow-up with PCP in 3-5 days or return if no improvement or sooner if worsens or if you develop bloody stools. ED if acutely worsen. If viral swab is negative, and abdominal pain persists/worsens, will proceed with CT scan and labs. Touch base with me over the next 2-4 days if no improvement, or worsening abdominal pain. documented in this encounter Progress Notes * Rocky Winters PA-C - 2023 1:37 PM EDT Nursing Notes: Luz Mendez LPN 01/02/23 1324 Signed 43 yo male presents with tender lower abd, fatigue, decreased appetite, diarrhea x 2 days. Taking advil/dayquil Subjective Ancelmo Salinas is a 43 year old male that presents for Other Flu This is a new problem. Episode onset: since Sunday. The problem occurs constantly. The problem has been gradually improving. Associated symptoms include abdominal pain, anorexia, a change in bowel habit (diarrhea), chills, diaphoresis, fatigue, a fever, headaches, myalgias, nausea, urinary symptoms (mild LLQ pain with urination) and weakness. Pertinent negatives include no arthralgias, chest pain, congestion, coughing, joint swelling, neck pain, numbness, rash, sore throat, swollen glands, vertigo, visual change or vomiting. Nothing aggravates the symptoms. He has tried NSAIDs (dayquil) for the symptoms. The treatment provided mild relief. He reports that his LLQ pain is 5/10, worse with palpation. He also has some discomfort LLQ with urination, but no dysuria, hematuria, discharge. Co-worker/friend was sick too starting Sunday. They were together day before. His last covid test was day 1 of symptoms Objective BP 120/84 | Pulse 90 | Temp 37 C (98.6 F) (Tympanic) | Resp 16 | Ht 1.803 m (5' 11") | Wt 86.1 kg (189 lb 12.8 oz) | SpO2 98% | BMI 26.47 kg/m | BSA 2.08 m Body mass index is 26.47 kg/m. BP Readings from Last 3 Encounters: 01/02/23 120/84 06/29/19 120/90 04/19/14 120/86 Wt Readings from Last 3 Encounters: 01/02/23 86.1 kg (189 lb 12.8 oz) 06/29/19 86.4 kg (190 lb 6.4 oz) 04/19/14 89.8 kg (198 lb) Physical Exam Vitals and nursing note reviewed. Constitutional: General: He is not in acute distress. Appearance: Normal appearance. He is ill-appearing. He is not toxic-appearing or diaphoretic. HENT: Head: Normocephalic and atraumatic. Right Ear: External ear normal. Left Ear: External ear normal. Nose: Nose normal. No congestion or rhinorrhea. Mouth/Throat: Mouth: Mucous membranes are moist. Pharynx: Oropharynx is clear. No oropharyngeal exudate or posterior oropharyngeal erythema. Eyes: General: No scleral icterus. Extraocular Movements: Extraocular movements intact. Conjunctiva/sclera: Conjunctivae normal. Pupils: Pupils are equal, round, and reactive to light. Neck: Vascular: No carotid bruit. Cardiovascular: Rate and Rhythm: Normal rate and regular rhythm. Heart sounds: No murmur heard. No friction rub. No gallop. Pulmonary: Effort: Pulmonary effort is normal. No respiratory distress. Breath sounds: No wheezing, rhonchi or rales. Chest: Chest wall: No tenderness. Abdominal: General: Abdomen is flat. Bowel sounds are normal. There is no distension. Palpations: Abdomen is soft. There is no mass. Tenderness: There is abdominal tenderness (LLQ and suprapubic region). There is no guarding or rebound. Hernia: No hernia is present. Musculoskeletal: General: No swelling or tenderness. Normal range of motion. Cervical back: Normal range of motion and neck supple. No rigidity. No muscular tenderness. Right lower leg: No edema. Left lower leg: No edema. Lymphadenopathy: Cervical: No cervical adenopathy. Skin: General: Skin is warm and dry. Capillary Refill: Capillary refill takes less than 2 seconds. Neurological: General: No focal deficit present. Mental Status: He is alert and oriented to person, place, and time. Psychiatric: Mood and Affect: Mood normal. Behavior: Behavior normal. Thought Content: Thought content normal. Judgment: Judgment normal. Assessment and plan 1. LLQ abdominal pain - URINALYSIS, POINT OF CARE (ENTER/EDIT) - CULTURE, URINE, QUANTITATIVE 2. Flu-like symptoms - INFLUENZA A/B RSV SARS-COV2,PCR Consistent with flu-like viral process. Is more tender than expected to LLQ on exam, however, he was having multiple bouts of diarrhea overlast few days, which may have caused this. If viral swab negative, and no improvement of pain (or if worsening), will get CBC, CMP, Lipase, and CT abd/pelvis to r/o diverticulitis and other GI etiologies. Pt unable to void today. Will return with sample. Follow up Increase clear, non-sugary fluid intake. Get plenty of rest You may also use ibuprofen or acetaminophen OTC for relief of pain or fevers. For sinus symptoms, and post-nasal drainage, you may start a daily nasal spray such as Flonase, Nasacort, OR Nasonex. They work best if used consistently. In addition to one of these medicated nasal sprays use saline nasal spray to avoid dryness and thinout mucous Increase your intake of clear, non-sugary fluids while you continue to have symptoms. Consider adding electrolyte drinks such as Pedialyte, coconut water, or sports drinks. Give yourself some bowel rest, and do a bland diet over the next several days, gradually adding foods back in as tolerated. Yogurt and probiotic supplements (especially lactobacillus), may help as well. One brand of probiotics that is often used for diarrhea is called culturelle, but any brand will work. Avoid high-fat or fried foods while you have symptoms, as these may further upset your GI tract. Anti-diarrhea medications: - in general, we recommend to avoid these and let the body rid itself of an toxins. - If you need to use these, however, imodium (or similar) can be used as long as you do not have a fever and stools are not bloody. - PeptoBismol is another medication that can provide relief from diarrhea, but also helps with upset stomach as well. (Note: PeptoBismol may turn your stools very dark in color). Follow-up with PCP in 3-5 days or return if no improvement or sooner if worsens or if you develop bloody stools. ED if acutely worsen. If viral swab is negative, and abdominal pain persists/worsens, will proceed with CT scan and labs. Touch base with me over the next 2-4 days if no improvement, or worsening abdominal pain. The above was discussed and understanding was expressed. Rocky Winters PA-C documented in this encounter Nursing Notes * Luz Mendez LPN - 2023 1:21 PM EDT 43 yo male presents with tender lower abd, fatigue, decreased appetite, diarrhea x 2 days. Taking advil/dayquil documented in this encounter Plan of Treatment Pending Results Name Type Priority Associated Diagnoses Date /Time CULTURE, URINE, QUANTITATIVE Lab STAT LLQ abdominal pain 2023 3:18 PM EDT INFLUENZA A/B RSV SARS-COV2,PCR Lab STAT Flu-like symptoms 2023 2:00 PM EDT Scheduled Orders Name Type Priority Associated Diagnoses Orde r Schedule URINALYSIS, POINT OF CARE (ENTER/EDIT) Point of Care Testing Routine LLQ abdominal pain Ordered: 2023 Health Maintenance Due Date Last Done Comments [...] as of this encounter Visit Diagnoses Diagnosis LLQ abdominal pain- Primary Abdominal pain, left lower quadrant Flu-like symptoms Influenza with other respiratory manifestations documented in this encounter
--- OUTSIDE RECORDS SUMMARY | 2023-06-28 20:05 | External Medical Summary | Summary of Care ---
Author Name Unknown Organization [facility] Address [address] [place] [address] Phone [phone] Care Team Providers Care Ornament Setter Name Role Phone Unavailable Primary Care Provider Unavailabl e Reason for Visit * Reason Comments Other Encounter Details Date Type Department Care Team (Latest Contact Info) Description 2023 2:15 PM EDT Convenient Care Visit [facility] [address] [place] [address] Rocky Winters PA-C [address] [place] [address] LLQ abdominal pain*; Flu-like symptoms Allergies No [...] STAT Flu-like symptoms 2023 2:00 PM EDT Health Maintenance Due Date Last Done Comments [...] Not on filedocumented as of this encounter Procedures Procedure Name Priority Date/Time Associated Diagnosis Comments URINALYSIS, POINT OF CARE (ENTER/EDIT) Routine 2023 LLQ abdominal pain documented in this encounter Results * URINALYSIS, POINT OF CARE (ENTER/EDIT) (2023) Color, Urine Yellow Yellow or Light Yellow Clarity, Urine Clear Clear Glucose, Urine Negative Negative mg/dL Bilirubin, Urine Negative Negative Ketone, Urine 15 Negative mg/dL Specific [place], Urine 1.015 1.003 - 1.030 Blood, Urine Negative Negative pH, Urine 6.0 5.0 - 7.5 units Protein, Urine Negative Negative mg/dL Urobilinogen, Urine 4.0 0.2 - 1.0 mg/dL Nitrite, Urine Negative Negative Esterase, Urine Negative Negative Urine 2023 Rocky Winters PA-C LAB POINT O F CARE TEST ENTER/EDIT ORDERABLES documented in this encounter Visit Diagnoses Diagnosis LLQ abdominal pain- Primary Abdominal pain, left lower quadrant Flu-like symptoms Influenza with other respiratory manifestations documented in this encounter
--- OUTSIDE RECORDS SUMMARY | 2023-06-28 20:05 | External Medical Summary | Summary of Care ---
Author Name Unknown Organization [facility] Address [address] [facility] [address] Phone [phone] Care Team Providers Care Film Splicer Name Role Phone George Simpson DO Primary Care Provider Reason for Visit * Reason Onset Date Comments NEW PATIENT Pt here for New Pt/get Est. Discuss possible R foot plantar fascitis. Also discuss hemorrhoids with occasional bleeding. Medication Administration 01/11/2023 Flu an d/or Pneumo Inj Encounter Details Date Type Department Care Team (Latest Contact Info) Description 01/11/2023 1:40 PM EST [facility] [address] [facility] [address] George Simpson, [address] [facility] [place] [address] Hemorrhoids, external without complications*; Need for prophylactic vaccination and inoculation against influenza; Plantar fasciitis; Family history of lung cancer; Family history of early CAD; Screening for diabetes mellitus; Screening for cardiovascular condition Allergies No known active allergiesdocumented as of this encounter (statuses as of 01/11/2023) Medications Medication Sig Dispensed Refills Start Date End Date Status Proctofoam HC 1-1 % External Foam (Hydrocort-Pramoxine (Perianal))Indications:H emorrhoids, external without complications Apply to the rectum daily as needed for hemorrhoids. 30 g 3 01/11/2023 Active documented as of this encounter (statuses as of 01/11/2023) Active Problems Problem Noted Date Diagnosed Date Plantar fasciitis 01/11/2023 Hemorrhoids, external without complications 11/2022 Family history of lung cancer 01/11/2023 Family history of early CAD 01/11/2023 documented as of this encounter (statuses as of 01/11/2023) Immunizations Name Administration Dates Next Due SEASONAL INFLUENZA, PF, 6 M & Above, IM , (FLULAVAL or FLUZONE) 01/11/2023 documented as of this encounter Social History Tobacco Use Types Packs/Day Years Used Date Smoking Tobacco: Never Smokeless Tobacco: Never Alcohol Use Standard Drinks/Week Comments No 0 (1 standard drink = 0.6 oz pur e alcohol) Sex and Gender Information Value Date Recorded Sex Assigned at Male 01/09/2023 9:17 AM EST Gender Identity Male 01/09/2023 9:17 AM EST Sexual Orientation Straight 01/09/2023 9: 17 AM EST Job Start Date Occupation Industry Not on file Not on file Not on file documented as of this encounter Last Filed Vital Signs Vital Sign Reading Time Taken Comments Blood Pressure 152/98 01/11/2023 1:34 PM EST Pulse 83 01/11/2023 1:34 PM EST Temperature 36.5 C (97.7 F) 01/11/2023 1:34 PM ES T Respiratory Rate - - Oxygen Saturation 100% 01/11/2023 1:34 PM EST Inhaled Oxygen Concentration - - Weight 84.4 kg (186 lb) 01/11/2023 1:34 PM EST Height 178.4 cm (5' 10.25") 01/11/2023 1:[address] Body Mass Index 26.5 01/11/2023 1:34 PM EST documented in this encounter Patient Instructions * Patient Instructions* Kathrin Richey LPN - 01/11/2023 1:35 PM EST ~~PATIENT INSTRUCTIONS FOR FLU SHOT~~ Possible side effects of influenza vaccine, (flu shot), are usually mild and include: 1. Soreness or redness at injection site 2. Low grade fever 3. Body aches You may use Tylenol/Acetaminophen as needed for these symptoms. LET YOUR DOCTOR KNOW IMMEDIATELY IF YOU HAVE DIFFICULTY BREATHING OR SWALLOWING, EXPERIENCE ITCHINGOF FEET OR HANDS, HAVE SWELLING OF EYES, FACE OR INSIDE OF NOSE. documented in this encounter Progress Notes * George Simpson, - 01/11/2023 1:35 PM EST Images from the original note were not included. Assessment and Plan Hemorrhoids, external without complications Will treat topically And consider colorectal surgery f/u If not improving - Proctofoam HC 1-1 % External Foam (Hydrocort-Pramoxine (Perianal)); Apply to the rectum daily as needed for hemorrhoids. Need for prophylactic vaccination and inoculation against influenza - INFLUENZA VACC, QUAD, PF, 6 MONTHS & UP, 0.5 ML, IM Plantar fasciitis Provided education on exercise To improve plantar fascial pain F/u with PT if not improving Family history of lung cancer Family history of early CAD Screening for diabetes mellitus - COMPREHENSIVE METABOLIC PANEL - HEMOGLOBIN A1C Screening for cardiovascular condition - COMPREHENSIVE METABOLIC PANEL - LIPID PANEL WITH DIRECT LDL IF TG IS HIGH History of Present Illness Ancelmo Salinas is a 43 year old male that presents for NEW PATIENT (Pt here for New Pt/get Est. Discuss possible R foot plantar fascitis. Also discuss hemorrhoids with occasional bleeding.) and Medication Administration (Flu and/or Pneumo Inj) Presents today to establish care and to Discuss hemorrhoids and plantar pain Has had hemorrhoids for some time But doesn't have constipation, doesn't strain Feels that he has to manually reduce the hemorrhoids Often Physical Exam Vitals: 01/11/23 1334 Temp: 36.5 C (97.7 F) Pulse: 83 SpO2: 100% BP: 152/98 BMI: 26.51 Physical Exam Constitutional: Appearance: Normal appearance. HENT: Head: Normocephalic and atraumatic. Eyes: Extraocular Movements: Extraocular movements intact. Pupils: Pupils are equal, round, and reactive to light. Cardiovascular: Rate and Rhythm: Normal rate and regular rhythm. Pulmonary: Breath sounds: Normal breath sounds. Neurological: General: No focal deficit present. Mental Status: He is alert and oriented to person, place, and time. Psychiatric: Mood and Affect: Mood normal. Behavior: Behavior normal. Wrap-Up Time: Total time today was 40 minutes excluding any time spent in the performance of separately billed services. * Kathrin Richey LPN - 01/11/2023 1:35 PM EST PRE - ADMINISTRATION DOCUMENTATION Are you experiencing any cold symptoms or fever? No Have you had Guillain-Rutland Syndrome (an illness that causes paralysis) within the last 6 weeks? No Have you had the flu shot in the past? YES Have you ever had a reaction to the flu shot? No Kathrin Richey LPN, 01/11/2023 1:35 PM Immunization Administration Documentation Time Out Procedure Performed: Yes Patient Identified (Ask Name/Date of ): Yes Does the patient have a fever greater than 101 degrees today? No Patient allergic to latex? No VFC Stock: No Immunization(s) verified: Yes, Immunization Name: Flu, VIS Sheet(s) given: Yes Injection(s) verified: Yes, Injection Name: flu Verified Side and Site: Yes Verified Shot(s) with Parent(s)/Patient: Yes documented in this encounter Plan of Treatment Scheduled Orders Name Type Priority Associated Diagnoses Orde r Schedule COMPREHENSIVE METABOLIC PANEL Lab Routine Screening for diabetes mellitus Screening for cardiovascular condition Ordered: 01/11/2023 HEMOGLOBIN A1C Lab Routine Screening for diabetes mellitus Ordered: 01/11/2023 LIPID PANEL WITH DIRECT LDL IF TG IS HIGH Lab Routine Screening for cardiovascular condition Ordered: 01/11/2023 Health Maintenance Due Date Last Done Comments Diabetes Screening 1981 Hepatitis B (1 of 3 - 3-dose series) 1981 Lipid Panel 1981 COVID-19 Vaccine (#1) 1981 Depression Screening 1993 DTaP,Tdap,and Td Vaccines (1 - Tdap) 01/03/2000 Influenza Vaccine (FLU shot) Completed 01/11/2023 GARDASIL-HPV IMMUNIZATION SERIES Aged Out No longer eligible based on patient's age to complete this topic HIV Screening Discontinued Hepatitis C Screening Discontinued MENINGOCOCCAL (MENACTRA/MENVEO) Aged Out No longer eligible based on patient's age to complete this topic Pneumococcal Vaccine: Pediat rics (0 to 5 Years) and At-Risk Patients (6 to 64 Years) Aged Out No longer eligi ble based on patient's age to complete this topic documented as of this encounter Medical Devices Not on filedocumented as of this encounter Visit Diagnoses Diagnosis Hemorrhoids, external without complications- Primary External hemorrhoids without mention of complication Need for prophylactic vaccination and inoculation against influenza Plantar fasciitis Plantar fascial fibromatosis Family history of lung cancer Family history of malignant neoplasm of trachea, bronchus, and lung Family history of early CAD Family history of ischemic heart disease Screening for diabetes mellitus Screening for cardiovascular condition Screening for other and unspecified cardiovascular conditions documented in this encounter Care Teams Film Splicer Relationship Specialty Start Date End Date George Simpson DO [address] [place] [address] PCP - General Family Medicine 01/11/23 documented as of this encounter
--- OUTSIDE RECORDS SUMMARY | 2023-06-28 20:05 | External Medical Summary | Summary of Care ---
Author Name Unknown Organization [facility] Address [address] [place] [address] Phone [phone] Care Team Providers Care Cargo Mate Name Role Phone Unavailable Primary Care Provider Unavailabl e Reason for Visit * Reason Comments Other Encounter Details Date Type Department Care Team (Latest Contact Info) Description 2023 2:15 PM EDT Convenient Care Visit [facility] [address] [place] [address] Rocky Winters PA-C [address] [place] [address] LLQ abdominal pain*; Flu-like symptoms Allergies No [...] Name Type Priority Associated Diagnoses Date /Time INFLUENZA A/B RSV SARS-COV2,PCR Lab STAT Flu-like symptoms 2023 2:00 PM EDT Scheduled Orders Name Type Priority Associated Diagnoses Orde r Schedule URINALYSIS, POINT OF CARE (ENTER/EDIT) Point of Care Testing Routine LLQ abdominal pain Ordered: 2023 CULTURE, URINE, QUANTITATIVE Lab STAT LLQ abdominal pain Ordered: 2023 Health Maintenance [...]
--- OUTSIDE RECORDS SUMMARY | 2023-06-28 20:05 | External Medical Summary ---
Author Name Unknown Address Unknown Organization [id number]:[facility] - [address] [place] [address] Laboratory Report Ordering Provider Test Date Status SHERRI CLIFTON 2023 15:18:36 Final Observation Date Value Abnormality Reference (Units) Status Bacteria identified in Specimen by Culture 2023 15:18:36 No significant growth Final Test: Culture, Urine, Quanti tative
Specimen Source: Urine, Clean Catch
Specimen Type: Urine
Specimen Date: 2023 3:18 PM
Result Date: 01/03/2023 4:29 PM
Result Status: Final result
Resulting Lab: [facility]
[address]
[facility] [id number]

CULTURE

No significant growth

null Performing Location [facility] - [address] [place] [id number]
--- OUTSIDE RECORDS SUMMARY | 2023-06-28 20:05 | External Medical Summary | Continuity of Care Document ---
Author Name Unknown Organization [facility] [address] [id number] Address [address] [place] [id number] Encounter [facility] [id number] Date(s): 05/31/23 - 05/31/23 [facility] [address] [id number] [facility] [address] [place] [id number] Encounter Diagnosis Plantar fasciitis, bilateral(Discharge Diagnosis) - 05/31/23 Discharge Disposition: Home or Self Care Attending Physician: MD Blevins Ravishankar E Allergies, Adverse Reactions, Alerts No Known Allergies Assessment and Plan Extracted from: Title:[facility] - B Plantar Fasciitis Author:MD Blevins Ravishankar E Date:05/31/23 1.Plantar fasciitis, bilat eral - Discussed correction prognosis and trajectory of improvement - HEP provided for ice massage, stretching - If refractory, consider formal PT and in last resort injections. f/u PRN. Time: 30mins 5- pre-visit chart review 20- visit, inclusive of history, exam, and discussion of assessment/plan 5- post-visit documentation/orders/coordination of care Immunizations Given and Recorded Vaccine Date Status Refusal Reason tetanus/diphtheria/pertuss, acel (Tdap) 01/12/14 G iven influenza virus vaccine, inactivated 12/01/13 Give n Medications No Known Medications Mental Status 05/31/23 Barriers to Learning one year None evide nt Mandatory Health Literacy Documentation Yes Health Literacy Communication Barriers N ever Primary Language Uzbek Problem List Condition Confirmation Course Effective Dates Status Health St atus Informant ALOPECIA AREATA Confirmed Active Heterozygous alpha 1-antitrypsin deficiency Confirmed Active Anxiety Confirmed Active Skin lesion Confirmed Active Weight monitoring Confirmed Active Diagnosis Diagnosis Type Effective Dates Health Status Cl inical Service Informant Plantar fasciitis, bilateral Discharge Diagnosis 05/31/23 Procedures Procedure Date Related Diagnosis Body Site Status Adenoidectomy 2004 Comple melita STEELE 2010 Completed Turbinectomy 2003 Complet ed Vital Signs Most recent to oldest [Reference Range]: 1 Height 180.5 cm (05/31/23 3:20 PM) Patient Weight 86.4 kg (05/31/23 3:20 PM) Body Mass Index 26.52 kg/m2 (05/31/23 3:20 PM) Social History Social History Type Response Smoking Status Never smoked cigaret wernre Sex Ortho Outpt Note * MD Gen, Octavio Myers: PERFORM Event Display: Ortho Outpt Note Authored Date: [id number] Chief Complaint bilateral foot pain, R>L. worse first thing in the morning. History of Present Illness Candi is a 43yoM here as a new patient self referral for bilateral foot pain x 1 year. Pain is worse in the R than L and always most painful first thing in the AM when he takes his first steps. He notes no injury/trauma he can recall. He notes after periods of immobility it hurts most.He first noticed symptoms exactly a year ago and he got foot inserts which have helped but still hasn't gone away. He notes symptoms have been fairly constant if not slightly worsening. Review of Systems 14pt ROS reviewed/negative except as noted in HPI. Physical Exam Vitals & Measurements HT:180.5cm WT:86.400kg(Dosing) WT:86.4kg BMI:26.52 GENERAL APPEARANCE: The patient is alert, oriented and in no acute distress. VITALS: As above. HEENT: Head is normocephalic/atraumatic. CARDIOVASCULAR: +2 dp pulses. LUNGS: Respirations even and unlabored. EXTREMITIES: No cyanosis, clubbing or edema. MUSCULOSKELETAL: TTP of proximal plantar fascia R<L. No achilles thickening or TTP. No midfoot or bony TTP of bilat feet. NEUROLOGICAL: Grossly non-focal exam. SKIN: Warm and dry without any rash. Assessment/Plan 1.Plantar fasciitis, bilateral - Discussed correction prognosis and trajectory of improvement - HEP provided for ice massage, stretching - If refractory, consider formal PT and in last resort injections. f/u PRN. Time: 30mins 5- pre-visit chart review 20- visit, inclusive of history, exam, and discussion of assessment/plan 5- post-visit documentation/orders/coordination of care Problem List/Past Medical History Ongoing ALOPECIA AREATA Anxiety Heterozygous alpha 1-antitrypsin deficiency Skin lesion Weight monitoring Historical Mononucleosis Procedure/Surgical History LASIK 2010Turbinectomy 2004Adenoidectomy 2004 Allergies NKA Social History Smoking Status Never smoked cigarettes Family History Heart disease: Mother. Heart murmur: Father. Pacemaker: MGM. Health Status Family Member(s) Immunizations Vaccine Date Status tetanus/diphtheria/pertuss, acel (Tdap) 01/12/2014 Given influenza virus vaccine, inactivated 12/01/2013 Given Recommendations Health Maintenance Pending(in the next year) OverDue Lipid Screening due01/12/19and every 1826day Adult Influenza Vaccine due09/01/22and every 1year Due Adult COVID-19 Vaccination due05/31/23Unknown Frequency Adult Social Determinants of Health Screening due05/31/23Unknown Frequency Satisfied(in the past 1 year) Satisfied Body Mass Index on05/31/23.Satisfied by ROBERTO Good [facility]idy Electronic Signature on File Electronically Reviewed/Signed by: Octavio Blevins MD Author Signature Dt/Tm:05/31/2023 03:36 PM Department of Family Medicine [facility] Patient Care team information Care Team Related Persons Name: WILL ALMONTE Address: home [address] [facility], [place] [id number] Name: WILL ALMONTE Address: [facility] [place] Address: home [address] [facility] [facility], [place] [id number] Name: KEERTHI ALMONTE Address: home [address] [place] [address] [place], [place] [id number] Name: TRAVON ALMONTE Address: [place] Address: home [address] [place] [address] [place], [place] [id number]
== END 2023-06-28 18:11 | disposition home or self-care (01) | DRG 419 ==
LOC: ED 20:33 → 3W 23:07